=== PATIENT | male | born 1995 | race Caucasian/White ===

== ENCOUNTER 2017-07-23 03:03 | Emergency (ER) | payer OTHER ==
[~2017-07-23] VITALS: Ht 182.9 cm; Wt 63.5 kg
[2017-07-23] MEDS ORDERED: CYMBALTA60 MG (03:27)
[2017-07-23 03:39] LABS: AMP/METHAMP Negative (Negative); BARBITURATES Negative (Negative); BENZODIAZEPINES Negative (Negative); COCAINE Negative (Negative); METHADONE Negative (Negative); OPIATES Negative (Negative); PCP Negative (Negative); THC Negative (Negative)
[2017-07-23 03:49] LABS: ABSOLUTE EOSINOPHILS 0.1 thou/uL (0.0-0.7); ABSOLUTE LYMPHOCYTES 2.1 thou/uL (0.8-5.3); ABSOLUTE MONOCYTES 0.5 thou/uL (0.0-1.2); ABSOLUTE NEUTROPHILS 4.3 thou/uL (1.6-8.1); BASOPHILS 0.7 %; EOSINOPHILS 1.1 %; HEMATOCRIT 44.9 % (42.0-52.0); HEMOGLOBIN 15.8 gm/dL (14.0-18.0); LYMPHOCYTES 30.2 %; MCHC 35.2 g/dL (28.0-37.0); MCV 93.6 fL (80.0-100.0); MONOCYTES 7.2 %; MPV 8.5 fl. (7.2-11.1); NUCLEATED RBCS 0 /100WBC; PLATELET COUNT* 268 thou/uL (150-400); POLYS 60.8 %; RDW-CV 12.3 % (10.5-14.5); WBC 7.1 thou/uL (4.0-11.0)
[2017-07-23 03:56] LABS: CALCIUM 8.5 mg/dL (8.5-10.1); CREATININE 0.9 mg/dL (0.6-1.3); POTASSIUM 3.3 mmol/L (3.5-5.1)
[2017-07-23 04:01] LABS: ALBUMIN 4.3 g/dL (3.4-5.0); ALCOHOL 152 mg/dL (<10); SALICYLATE < 2.8 mg/dL (2.8-20.0); TOTAL BILIRUBIN 0.2 mg/dL (<0.1-1.0); TOTAL PROTEIN 7.3 g/dL (6.4-8.2)
[2017-07-23 04:02] LABS: ACETAMINOPHEN < 2 ug/mL (10-30)
[2017-07-23 08:00] VITALS: BP 117/67
== END 2017-07-23 08:42 ==
LOC: M.ERS 03:03
PROVIDERS: Emergency Medicine
DX: R45.851 Suicidal ideations (principal); F32.9 Major depressive disorder, single episode, unspecified